=== PATIENT | female | born 1980 | race Caucasian/White ===

== ENCOUNTER 2022-01-26 15:39 | Emergency (ER) | payer OTHER ==
[2022-01-26 16:21] VITALS: BP 115/63; PULSE 87; TEMP 98.4; BMI 29.9
[2022-01-27 14:08] LABS: SARS-CoV-2 NAA Not Detected (Not Detected)
== END 2022-01-26 18:08 | disposition home or self-care (01) ==
LOC: JER 15:39
DX: B34.9 Viral infection, unspecified (principal)
CPT/HCPCS: 87804; 99283-25; C9803-CS; U0003; U0005

== ENCOUNTER 2023-01-21 11:43 | Emergency (ER) | payer OTHER ==
[2023-01-21 11:52] VITALS: BP 135/87; PULSE 92; RESP 18; TEMP 98.9; BMI 30.9
== END 2023-01-21 13:37 | disposition home or self-care (01) ==
LOC: JER 11:43
DX: T81.31XA Disruption of external operation (surgical) wound, not elsewhere classified, initial encounter (principal); N64.4 Mastodynia
CPT/HCPCS: 99282-25

== ENCOUNTER 2023-02-04 13:53 | Emergency (ER) | payer OTHER ==
[2023-02-04] MEDS ORDERED: SODIUM CHLORIDE 0.9% 500 ML INFUS.BAG IV ONE (14:31)
[2023-02-04] MEDS ORDERED: morphine CARPU-JECT 4 MG/1 ML DISP.SYRIN IVPUSH ONE (14:31)
[2023-02-04] MEDS ORDERED: ACETAMINOPHEN 1000 MG/100 ML BAG IVPB ONE (14:31)
[2023-02-04] MEDS ORDERED: VANCOMYCIN 1 GM in D5W (PRE-DOCKED) 1,000 MG/250 ML IVPB ONE (14:33)
[2023-02-04] MEDS ORDERED: PIPERACILLIN/TAZOB 4.5 GM 4.5 GM in DEXTROSE 5%-WATER 100 ML IVPB ONE (14:33)
[2023-02-04] MEDS ORDERED: PIPERACILLIN/TAZOB 4.5 GM 4.5 GM/100 ML BAG IVPB ONE (14:37)
[2023-02-04] MEDS ORDERED: morphine SULFATE 4 MG/ML VIAL ONE (14:37)
[2023-02-04] MEDS ORDERED: ACETAMINOPHEN INJECTION 100 ML IVPB ONE (14:37)
[2023-02-04] MEDS ORDERED: VANCOMYCIN/WATER FOR INJ (PEG) 1,000 MG/200 ML BAG IVPB ONE (15:32)
[2023-02-04 15:41] VITALS: TEMP 99
[2023-02-04 15:48] VITALS: BMI 32.1
[2023-02-04 16:33] LABS: BASO % 0.4 % (0-2.0); EOS % 0.9 % (0-4.5); HEMATOCRIT 40.5 % (32.4-45.2); HEMOGLOBIN 13.6 GM/dL (10.7-15.3); LYMPH % 21.3 % (8-40); MCH 31.8 pg (25.7-33.7); MCHC 33.7 g/dl (32.0-36.0); MEAN CELL VOLUME 94.5 fl (80-96); MONO % 7.8 % (3.8-10.2); NEUT % 69.6 % (42.8-82.8); PLATELET COUNT 364 10^3/uL (134-434); RBC 4.28 M/mm3 (3.60-5.2); RDW 13.7 % (11.6-15.6); WHITE BLOOD COUNT 9.4 K/mm3 (4.0-10.0)
[2023-02-04 16:43] LABS: INR 1.03 (0.83-1.09); PROTHROMBIN TIME (PATIENT) 11.9 SEC (9.7-13.0)
[2023-02-04 16:49] LABS: ACTIVATED PTT 31.2 SECONDS (25.2-36.5)
[2023-02-04 16:59] LABS: CALCIUM 9.9 mg/dL (8.5-10.1)
[2023-02-04 17:00] LABS: ALBUMIN 4.3 g/dl (3.4-5.0); BLOOD UREA NITROGEN 8.2 mg/dL (7-18)
[2023-02-04 17:03] LABS: CREATININE 0.6 mg/dL (0.55-1.3)
[2023-02-04 17:04] LABS: BILIRUBIN,TOTAL 0.9 mg/dL (0.2-1); TOT PROT 8.1 g/dl (6.4-8.2)
[2023-02-04 17:59] VITALS: BP 127/76; PULSE 83; RESP 16
== END 2023-02-04 18:06 | disposition short-term general hospital (02) ==
LOC: JER 13:53
PROC: 3E03329 Introduction of Other Anti-infective into Peripheral Vein, Percutaneous Approach (ICD-10-PCS; principal; 2023-02-04)
PROC: 3E033GC Introduction of Other Therapeutic Substance into Peripheral Vein, Percutaneous Approach (ICD-10-PCS; 2023-02-04)
PROC: 3E033GC Introduction of Other Therapeutic Substance into Peripheral Vein, Percutaneous Approach (ICD-10-PCS; 2023-02-04)
PROC: 3E033GC Introduction of Other Therapeutic Substance into Peripheral Vein, Percutaneous Approach (ICD-10-PCS; 2023-02-04)
DX: T81.31XA Disruption of external operation (surgical) wound, not elsewhere classified, initial encounter (principal); R50.9 Fever, unspecified; N64.4 Mastodynia; Y83.8 Other surgical procedures as the cause of abnormal reaction of the patient, or of later complication, without mention of misadventure at the time of the procedure; Z20.822 Contact with and (suspected) exposure to COVID-19
CPT/HCPCS: 0241U-QW; 36415; 80053; 85025; 85610; 85730; 86140; 86850; 86900; 86901; 87040; 99285-25

== ENCOUNTER 2023-10-01 13:30 | Emergency (ER) | payer OTHER ==
[2023-10-01 13:38] VITALS: BP 116/78; PULSE 94; RESP 18; TEMP 98.5; BMI 31.9
[2023-10-01] MEDS ORDERED: ACETAMINOPHEN 1000 MG/100 ML BAG IVPB ONE (14:56)
[2023-10-01] MEDS ORDERED: ACETAMINOPHEN INJECTION 100 ML IVPB ONE (15:17)
[2023-10-01 15:21] LABS: BASO % 0.4 % (0-2.0); EOS % 1.1 % (0-4.5); HEMATOCRIT 41.8 % (32.4-45.2); HEMOGLOBIN 13.9 GM/dL (10.7-15.3); LYMPH % 27.2 % (8-40); MCH 32.3 pg (25.7-33.7); MCHC 33.3 g/dl (32.0-36.0); MEAN CELL VOLUME 96.8 fl (80-96); MONO % 7.8 % (3.8-10.2); NEUT % 63.5 % (42.8-82.8); PLATELET COUNT 338 10^3/uL (134-434); RBC 4.31 M/mm3 (3.60-5.2); RDW 12.9 % (11.6-15.6); WHITE BLOOD COUNT 11.5 K/mm3 (4.0-10.0)
[2023-10-01 15:43] LABS: POTASSIUM 4.5 mmol/L (3.5-5.1)
[2023-10-01 15:45] LABS: BLOOD UREA NITROGEN 14.6 mg/dL (7-18); CALCIUM 9.5 mg/dL (8.5-10.1)
[2023-10-01 15:48] LABS: CREATININE 0.7 mg/dL (0.55-1.3)
[2023-10-01 15:50] LABS: BILIRUBIN,TOTAL 0.8 mg/dL (0.2-1); TOT PROT 7.4 g/dl (6.4-8.2)
[2023-10-01] MEDS ORDERED: AZITHROMYCIN 250 MG TABLET PO ONE (19:15)
[2023-10-01] MEDS ORDERED: AZITHROMYCIN 500 MG TABLET ONE (19:37)
== END 2023-10-01 19:50 | disposition home or self-care (01) ==
LOC: JER 13:30
PROC: 3E033NZ Introduction of Analgesics, Hypnotics, Sedatives into Peripheral Vein, Percutaneous Approach (ICD-10-PCS; principal; 2023-10-01)
DX: H92.02 Otalgia, left ear (principal); M54.2 Cervicalgia; M25.511 Pain in right shoulder; M25.512 Pain in left shoulder; J32.9 Chronic sinusitis, unspecified
CPT/HCPCS: 36415; 70481-TC; 80053; 84703; 85025; 99285-25; Q9967